=== PATIENT | male | born 1945 | race Caucasian/White ===

== ENCOUNTER → 2023-09-05 13:08 | Outpatient (REF) | payer MEDICARE, OTHER, SELFPAY ==
[2023-09-05 14:55] LABS: % Basophils 0.7 % (0-2); % Eosinophils 1.5 % (0-6); % Immature Granulocytes 0.3 % (0-0.5); % Lymphocytes 14.2 % (20.5-51.1); % Monocytes 8.1 % (1.7-9.3); % Neutrophils 75.2 % (42.2-75.2); Absolute Basophils 0.1 10^3/uL (0-0.2); Absolute Eosinophils 0.1 10^3/uL (0-0.7); Absolute Lymphocytes 1.1 10^3/uL (1.2-3.4); Absolute Monocytes 0.6 10^3/uL (0.1-0.6); Absolute Neutrophils 5.7 10^3/uL (1.4-6.5); Hematocrit 41.8 % (39.0-52.0); Mean Corp Hgb Conc. 33.5 g/dL (33.0-37.0); Mean Corpuscular Hgb 29.9 pg (27.0-31.0); Mean Corpuscular Volume 89.3 fL (80.0-94.0); Mean Platelet Volume 11.1 fL (7.4-10.4); Nucleated Red Blood Cells % 0 % (-); Platelet Count 222 10^3/uL (130-400); Red Blood Cell Count 4.68 10^6/uL (4.70-6.10); Red Cell Dist. Width 12.2 % (11.5-14.5); White Blood Cell Count 7.6 10^3/uL (4.8-10.8)
[2023-09-05 15:19] LABS: ALT (SGPT) 32 U/L (0-50); AST (SGOT) 33 U/L (17-59); Albumin 4.2 g/dl (3.5-5.0); Alkaline Phosphatase 73 U/L (38-126); Blood Urea Nitrogen 20 mg/dl (9-20); Calcium 9.4 mg/dl (8.4-10.2); Carbon Dioxide 26 mmol/L (22-30); Chloride 104 mmol/L (98-107); Glucose 93 mg/dl (70-99); HDL Cholesterol 57 mg/dl; LDL Cholesterol, Calculated 60 mg/dl; Potassium 4.5 mmol/L (3.5-5.1); Sodium 135 mmol/L (135-145); Total Bilirubin 1.2 mg/dl (0.2-1.3); Total Cholesterol 129 mg/dl (50-199); Total Protein 6.3 g/dl (6.3-8.2); Triglyceride 63 mg/dl (10-149); Very Low Density Lipoprotein 12 mg/dl (0-30); eGFR > 60.00
[2023-09-05 15:32] LABS: Total Thyroxine 8.85 ug/dl (5.5-11.0)
[2023-09-05 15:46] LABS: TSH 1.61 uIU/ml (0.47-4.68)
[2023-09-05 16:22] LABS: Folate > 20.0 ng/ml (2.76-20); Vitamin B12 735 pg/ml (239-931)
[2023-09-06 09:00] LABS: Glycohemoglobin (HgbA1c) 5.9 % (4.0-5.6)
== END ==
LOC: REG 13:08
PROVIDERS: ATTENDING PHYSICIAN Internal Medicine Cardiovascular Disease
DX: E78.00 Pure hypercholesterolemia, unspecified (principal); R73.03 Prediabetes; E55.9 Vitamin D deficiency, unspecified; D64.9 Anemia, unspecified; R94.6 Abnormal results of thyroid function studies; D52.9 Folate deficiency anemia, unspecified; D51.9 Vitamin B12 deficiency anemia, unspecified
CPT/HCPCS: 36415; 80053; 80061; 82306; 82607; 82746; 83036; 84436; 84443; 85025

== ENCOUNTER → 2023-11-13 13:04 | Outpatient (REF) | payer MEDICARE, OTHER, SELFPAY ==
[2023-11-13 14:19] LABS: Creatine Phosphokinase 147 U/L (55-170)
[2023-11-13 14:58] LABS: PSA, Total - Diagnostic 3.69 ng/ml (0.0-4.0)
[2023-11-15 20:56] LABS: Aldolase 6.4 U/L (1.2-7.6)
== END ==
LOC: REG 13:04
PROVIDERS: ATTENDING PHYSICIAN Specialist; REFERRING PHYSICIAN Specialist
DX: R53.1 Weakness (principal); R97.20 Elevated prostate specific antigen [PSA]
CPT/HCPCS: 36415; 82085; 82550; 84153